=== PATIENT | male | born 1985 ===

== ENCOUNTER → 2021-11-16 | Day surgery (SDC) | payer OTHER ==
[~2021-11-16] VITALS: Ht 182.9 cm; Wt 102.0 kg
[~2021-11-16] MED LIST: BUPRENORPHIN-N1 EACH SL; FLUOXETINE HCL40 MG PO; MELATONIN5 M2 PO
[2021-11-16 10:55] LABS: BASOPHIL 0.7 % (0-2); EOSINOPHIL 7.6 % (0-5); HCT 38.3 % (42.0-52.0); HGB 13.2 g/dl (13.2-18.0); LYMPHOCYTE 43.8 % (15-48); MCH 29.3 pg (25.0-31.0); MCHC 34.5 g/dL (32.0-36.0); MCV 85.1 fL (78.0-100.0); MONOCYTE 9.7 % (0-12); MPV 8.7 fL (6.0-9.5); NEUTROPHIL 38.2 % (41-80); NRBC 0; PLT 200 K/uL (150-400); RDW 11.7 % (11.5-14.0); WBC 4.3 K/uL (4.0-10.5)
== END | disposition home or self-care (01) ==
LOC: FAS 10:08
PROVIDERS: Oral & Maxillofacial Surgery
DX: K02.9 Dental caries, unspecified (principal); K04.7 Periapical abscess without sinus; F11.11 Opioid abuse, in remission; Z88.0 Allergy status to penicillin
CPT/HCPCS: D7140; D7210; D7310; 36415; 85025; J1100; J1170; J1885; J2250; J2405; J2704; J7120